=== PATIENT | male | born 1955 | race Hispanic/Latino ===

== ENCOUNTER 2021-06-09 22:36 | Inpatient (IN) | payer MEDICARE ==
[~2021-06-09] VITALS: Ht 172.7 cm; Wt 86.9 kg
[2021-06-09 22:55] VITALS: BP 139/70
[2021-06-09] MEDS ORDERED: TYLENOL PO PRN (23:30)
[2021-06-09] MEDS ORDERED: LOVENOX SQ SCH (23:30)
[2021-06-09] MEDS ORDERED: ZOFRAN IV PRN (23:30)
[2021-06-10] MEDS ORDERED: LACTATED RINGERS 1,000 ML IV SCH
[2021-06-10] MEDS ORDERED: VANCOMYCIN HCL 1 GM ONE (00:28)
[2021-06-10] MEDS: NORCO 5MG PO PRN ×3 (00:44→23:18)
--- NOTE | 2021-06-10 01:19 | PRM.CONS ---
Consultation Reason for Consult: Reason for Consultation: transfer from [facility] ER for failed outpt tx of infected left knee History of Present Illness Current and Past HX: (1) Abscess of bursa, left knee Status: Acute ICD Code: M71.062 - Abscess of bursa, left knee SNOMED: 541577317 Assessment & Plan: Failed outpt treatment w/ Bactrim DS. Xray and US of left knee done at that facility, no bone involvement per check- out (no records available to review at this time). S/p I&D at [facility] ER in [place], wound cx sent to [facility]. Received vancomycin and clindamycin at that facility prior to transfer. -Dr. Castro, ortho, consulted -stat CBC ordered -continue IV vancomycin (2) T2DM (type 2 diabetes mellitus) Status: Chronic ICD Code: E11.9 - Type 2 diabetes mellitus without complications SNOMED: 19500817 Assessment & Plan: Glucose elevated when checked by EMS during transport, unknown what the glucose reading was at that time. -stat BMP -glucose checks ACHS -SSI History of Patient Comments 65yoM w/ hx of T2DM presented to [facility] ER w/ worsening left knee pain, redness, warmth and swelling. Stated the pain and redness/warmth/swelling started approx 10 days ago. He was prescribed Bactrim DS but the symptoms got worse, to the point he went to the [facility] ER in [place] for further evaluation. Left knee US and Xray done at that facility (report unavailable at time of admission) and he was told there was an abscess of the bursa of his left knee but no bone involvement. They did an I&D there and sent wound cx to [facility]. He received vancomycin and clindamycin prior to transfer to [facility]. Patient was hyperglycemic in ambulance during transport (glucose measurement unknown at time of admission). Labs ordered. Vancomycin ordered. Dr. Castro, orthopedics, consulted. Admitted as inpatient for abscess of left knee bursa after failing outpatient antibiotics, and management of chronic conditions. . Vitals & Lab Vital Signs Date Time Temp Pulse Resp B/P (MAP) Pulse Ox O2 Delivery O2 Flow Rate FiO2 06/09/21 22:55 98.7 76 17 139/70 (93) 92 Room Air KANDIS SEQUEIRA MD Jun 10, 2021 01:19
[2021-06-10 01:29] LABS: CARBON DIOXIDE 22.9 mmol/L (20.0-32)
[2021-06-10] MEDS: VANCOMYCIN HCL 1 GM in NS 250ML 250 ML IV SCH ×3 (01:35→22:04)
[2021-06-10 01:43] LABS: BASOPHIL % 0.3 % (0.0-0.2); EOSINOPHIL # 0.2 10^3/uL (0.0-0.2); EOSINOPHIL % 2.7 % (0.0-5.0); LYMPHOCYTES # 0.47 10^3/uL1 (1.0-4.8); LYMPHOCYTES % 6.8 % (24.0-44.0); MEAN CORP HGB 25.2 pg (26-34); MONOCYTES # 0.5 10^3/uL (0.3-0.8); MONOCYTES % 7.1 % (5.0-12.0); NEUTROPHIL # 5.7 10^3/uL (1.8-7.7); NEUTROPHILS % 81.4 % (41.0-85.0); PLATELET COUNT 166 10^3/uL (150-400); RED CELL DISTRIBUTION WIDTH 15.7 % (11.5-14.5)
[2021-06-10] MEDS: MORPHINE SULFATE IV PRN ×2 (02:18→20:47)
[2021-06-10] MEDS: NS 1000ML 1,000 ML IV SCH ×2 (03:00→16:20)
[2021-06-10 04:25] VITALS: BP 132/74
[2021-06-10] MEDS: HUMALOG SQ SCH ×4 (08:00→21:00)
[2021-06-10 08:46] VITALS: BP 127/67
--- NOTE | 2021-06-10 09:29 | CNH ---
DATE OF CONSULTATION: 06/10/2021 DICTATOR NAME: Isaac Castro MD CHIEF COMPLAINT: Painful left knee. 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 The patient lives in [place]. The patient began having swelling and pain about the anterior portion of his left knee due to 3 days ago. He was seen in one of the freestanding ER and initially placed on Bactrim-DS. Symptoms got worse and the patient was seen back in the freestanding ER yesterday where the prepatellar bursa was aspirated. The patient was not responding to p.o. antibiotics and he was transferred to [place] because there were no beds available in [place]. The patient does have type 2 diabetes. He denies any fever or chills. He states that the swelling in his lower leg is better since he has been on IV vancomycin. Exam today shows that he has some diffuse swelling about the prepatellar bursa. There is no drainage. His knee joint itself was not swollen. He has good flexion and extension of the knee. The patient's admitting white count is 7. Otherwise, lab work looked okay except for his sodium was low at 131. ASSESSMENT: Infected left prepatellar bursa. PLAN: The patient will be started on IV vancomycin and warm compresses. We will add piperacillin and follow the patient clinically. Isaac Castro MD DR: JAG/KIRK TID: [id number] RECEIPT: [id number]
[2021-06-10 11:52] VITALS: BP 132/61
--- NOTE | 2021-06-10 13:48 | NUR ---
DISCHARGE PLAN CM VISITED WITH PATIENT REGARDING D/C PLAN. PATIENT LIVES AT HOME WITH HIS SPOUSE AND IS VERY IND OF ADL. 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 PATIENT HAS REQUIRED A CANE TO WALK SINCE HE HAS BEEN DOWN IN HIS KNEE. HE DOES NOT USE ANY OTHER DME AT HOME. HIS PCP IS DR FISHER. CM EDUCATED ON POSSIBILITY OF HIM NEEDING IV THERAPY AND WOUND CARE AFTER DISCHARGE. PATIENT VERBALIZED UNDERSTANDING. CM WILL CONTINUE TO MONITOR DISCHARGE NEEDS OF PATIENT.
--- NOTE | 2021-06-10 15:35 | PCM.HP ---
HISTORY & PHYSICAL HISTORY & PHYSICAL DATE OF ADMISSION: CHIEF COMPLAINT:Left knee swelling and pain History of Present Illness Current and Past HX: (1) Abscess of bursa, left knee Status: Acute ICD Code: M71.062 - Abscess of bursa, left knee SNOMED: 261994804 Assessment & Plan: Failed outpt treatment w/ Bactrim DS. Xray and US of left knee done at that facility, no bone involvement per check- out (no records available to review at this time). S/p I&D at [facility] ER in [place], wound cx sent to [facility]. Received vancomycin and clindamycin at that facility prior to transfer. -Dr. Castro, ortho, consulted -stat CBC ordered -continue IV vancomycin (2) T2DM (type 2 diabetes mellitus) Status: Chronic ICD Code: E11.9 - Type 2 diabetes mellitus without complications SNOMED: [id number] Assessment & Plan: Glucose elevated when checked by EMS during transport, unknown what the glucose reading was at that time. -stat BMP -glucose checks ACHS -SSI History of Patient Comments 65yoM w/ hx of T2DM presented to [facility] ER w/ worsening left knee pain, redness, warmth and swelling. Stated the pain and redness/warmth/swelling started approx 10 days ago. He was prescribed Bactrim DS but the symptoms got worse, to the point he went to the [facility] ER in [place] for further evaluation. Left knee US and Xray done at that facility (report unavailable at t bear of admission) and he was told there was an abscess of the bursa of his left knee but no bone involvement. They did an I&D there and sent wound cx to [facility]. He received vancomycin and clindamycin prior to transfer to [facility]. Patient was hyperglycemic in ambulance during transport (glucose measurement unknown at time of admission). Labs ordered. Vancomycin ordered. Dr. Castro, orthopedics, consulted. Admitted as inpatient for abscess of left knee bursa after failing outpatient antibiotics, and management of chronic conditions. . ALLERGIES: No known allergies PAST MEDICAL HISTORY: Diabetes mellitus SOCIAL HISTORY: No history of smoking or alcohol drinking or drug abuse reported FAMILY HISTORY: Reviewed noncontributory REVIEW OF SYSTEMS: Review of 14 systems negative except was mentioned history present illness VITAL SIGNS: PHYSICAL EXAMINATION: Blood pressure 130/80, heart rate 80, respiratory rate 14, temperature 98 Head and neck normocephalic atraumatic neck supple Chest fair bilateral air entry Heart S1-S2 regular Abdomen soft nontender bowel sounds present Neuro awake alert oriented no focal deficit Psych normal mood Extremities swollen tender erythematous knee DIONE CHURCH MD Jun 10, 2021 15:35
[2021-06-10 16:08] VITALS: BP 126/68
[2021-06-10] MEDS ORDERED: ZOSYN 3.375 GM 3.375 GM in NS 100ML 100 ML IV SCH (17:30)
[2021-06-10] MEDS ORDERED: NS 100ML 100 ML IV ONE (19:56)
[2021-06-10] MEDS ORDERED: NS 500ML 500 ML IV ONE (20:08)
[2021-06-10] MEDS: ZOSYN 3.375 GM 3.375 GM in NS 100ML 100 ML IV SCH (20:18)
[2021-06-10 20:20] VITALS: BP 121/71
[2021-06-11] VITALS (15 sets, daily range): BP systolic 113–158; BP diastolic 61–87
[2021-06-11] MEDS ORDERED: NS 100ML 100 ML IV ONE (03:51)
[2021-06-11] MEDS: ZOSYN 3.375 GM 3.375 GM in NS 100ML 100 ML IV SCH ×3 (04:00→19:53)
[2021-06-11 06:05] LABS: BASOPHIL % 0.5 % (0.0-0.2); EOSINOPHIL # 0.2 10^3/uL (0.0-0.2); EOSINOPHIL % 4.2 % (0.0-5.0); LYMPHOCYTES # 0.68 10^3/uL1 (1.0-4.8); MEAN CORP HGB 25.3 pg (26-34); MONOCYTES # 0.5 10^3/uL (0.3-0.8); MONOCYTES % 8.3 % (5.0-12.0); NEUTROPHIL # 4.2 10^3/uL (1.8-7.7); PLATELET COUNT 158 10^3/uL (150-400); RED CELL DISTRIBUTION WIDTH 15.5 % (11.5-14.5)
[2021-06-11 06:12] LABS: CARBON DIOXIDE 23.3 mmol/L (20.0-32)
--- NOTE | 2021-06-11 06:12 | NUR ---
Applied gauze and randy wrap over pts left leg, k-matic pad applied for warm moist
[2021-06-11] MEDS: NS 1000ML 1,000 ML IV SCH ×2 (06:50→19:53)
[2021-06-11] MEDS: HUMALOG SQ SCH ×4 (07:30→21:00)
--- NOTE | 2021-06-11 08:39 | PRM.PN ---
Subjective Subjective Date: Jun 11, 2021 Time: 08:38 Subjective Pt still has pain and swelling of left prepatella bursa Tender with Palpation Will proceed with I&D today VTE VTE Risk Total Score: 3 VTE Risk Score VTE Risk: Score 0-1 = Low Risk (Aggressive mobilization; early ambulation; no VTE prophylaxis required) Score 2: Moderate Risk (Intermittent/Pneumatic Compression Device OR Lovenox/Heparin/Coumadin) Score 3-4: High Risk (Intermittent/Pneumatic Compression Device AND Lovenox/Heparin/Coumadin) Score > or =5: Highest Risk (Intermittent/Pneumatic Compression Device AND Lovenox/Heparin/Coumadin) Review of Systems Allergies: Coded Allergies: No Known Allergies (Unverified , 06/10/21) Objective Vitals and I/O Vital Sign - Last 24 Hours 06/10/21 06/10/21 06/10/21 06/10/21 08:46 11:52 16:08 20:20 Temp 97.9 98.5 98.0 98.4 Pulse 69 83 85 81 Resp 18 18 17 18 B/P (MAP) 127/67 (87) 132/61 (84) 126/68 (87) 121/71 (88) Pulse Ox 97 96 96 94 O2 Delivery Room Air Room Air Room Air 06/11/21 06/11/21 06/11/21 00:00 01:48 04:00 Temp 98.5 97.5 Pulse 68 66 Resp 18 18 B/P (MAP) 123/71 (88) 122/73 (89) Pulse Ox 94 96 O2 Delivery Room Air Room Air Room Air Intake and Output 06/11/21 07:00 Intake Total 1550 ml Output Total 700 ml Balance 850 ml All Results(Lab/Rad) Laboratory Tests Test 06/10/21 10:46 06/10/21 15:45 06/10/21 20:04 06/11/21 04:59 Bedside Glucose 294 231 381 White Blood Count 5.7 10^3/uL Red Blood Count 4.07 10^6/uL Hemoglobin 10.3 g/dL Hematocrit 31.8 % Mean Corpuscular Volume 78.1 fL Mean Corpuscular Hemoglobin 25.3 pg Mean Corpuscular Hemoglobin Concent 32.4 g/dL Red Cell Distribution Width 15.5 % Platelet Count 158 10^3/uL Mean Platelet Volume 9.5 fL Neutrophils (%) (Auto) 75.0 % Lymphocytes (%) (Auto) 12.0 % Monocytes (%) (Auto) 8.3 % Neutrophils # (Auto) 4.2 10^3/uL Lymphocytes # (Auto) 0.68 10^3/uL1 Monocytes # (Auto) 0.5 10^3/uL Absolute Immature Granulocyte (auto 0.20 10^3 u/L Absolute Eosinophils (auto) 0.2 10^3/uL Immature Granulocytes % 3.50 % Eosinophils % 4.2 % Basophils % 0.5 % Basophils # 0.0 10^3/uL Sodium Level 135 mmol/L Potassium Level 4.6 mmol/L Chloride Level 103.0 mmol/L Carbon Dioxide Level 23.3 mmol/L Glucose Level 209 mg/dL Blood Urea Nitrogen 14 mg/dL Creatinine 0.92 mg/dL Calcium Level 8.7 mg/dL Anion Gap 13.3 Estimated GFR () 99.9 Est GFR (CKD-EPI)(Non-Afr Nigerien) 82.6 BUN/Creatinine Ratio 15.0 Test 06/11/21 07:08 Bedside Glucose 214 Current Medications Medications (Trade) Dose Ordered Sig/Kerry Route PRN Reason Start Time Stop Time Status Last Admin Dose Admin Acetaminophen (Tylenol) 650 mg Q4H PRN PO PAIN 1 - 3 06/09/21 23:30 07/09/21 23:29 Morphine Sulfate (Morphine Sulfate) 2 mg Q4H PRN IV PAIN 7 - 10 06/09/21 23:45 07/09/21 23:44 06/10/21 20:47 Insulin Human Lispro (Humalog) 0-140 0 Units 141-200... ACHS SQ 06/10/21 07:30 07/10/21 07:29 06/10/21 21:00 Ondansetron HCl (Zofran) 4 mg Q6H PRN IV n/v 06/09/21 23:30 07/09/21 23:29 Vancomycin HCl 1 gm/Sodium Chloride 250 ml @ 175 mls/hr Q12HR IV 06/09/21 23:30 07/09/21 23:29 06/10/21 22:04 Acetaminophen/ Hydrocodone Bitart (Fanrock 5mg) 1 ea Q6HR PRN PO PAIN 4 - 6 06/09/21 23:30 07/09/21 23:29 06/10/21 23:18 Enoxaparin Sodium (Lovenox) 40 mg Q24HRS SQ 06/09/21 23:30 06/10/21 17:26 DC 06/10/21 00:44 Vancomycin HCl 1 ml @ ud STK-MED ONCE .ROUTE 06/10/21 00:28 06/10/21 00:28 DC Sodium Chloride 1,000 ml @ 75 mls/hr [id number] IV 06/10/21 03:00 07/10/21 02:59 06/10/21 03:00 Piperacillin Sod/ Tazobactam Sod 3.375 gm/Sodium Chloride 100 ml @ 100 mls/hr Q6H IV 06/10/21 17:30 06/10/21 17:37 DC Piperacillin Sod/ Tazobactam Sod 3.375 gm/Sodium Chloride 100 ml @ 100 mls/hr Q8H IV 06/10/21 19:30 07/10/21 19:29 06/11/21 04:00 Sodium Chloride 100 ml @ ud STK-MED ONCE IV 06/10/21 19:56 06/10/21 19:56 DC Sodium Chloride 500 ml @ ud STK-MED ONCE IV 06/10/21 20:08 06/10/21 20:09 DC Sodium Chloride 100 ml @ ud STK-MED ONCE IV 06/11/21 03:51 06/11/21 03:52 DC Course Sepsis Screening Results: Posi: NEGATIVE Sepsis Qualifier/Stage: NO DEFINITE RISK Vitals & review Data Vital Sign - Last 24 Hours 06/10/21 06/10/21 06/10/21 06/10/21 08:46 11:52 16:08 20:20 Temp 97.9 98.5 98.0 98.4 Pulse 69 83 85 81 Resp 18 18 17 18 B/P (MAP) 127/67 (87) 132/61 (84) 126/68 (87) 121/71 (88) Pulse Ox 97 96 96 94 O2 Delivery Room Air Room Air Room Air 06/11/21 06/11/21 06/11/21 00:00 01:48 04:00 Temp 98.5 97.5 Pulse 68 66 Resp 18 18 B/P (MAP) 123/71 (88) 122/73 (89) Pulse Ox 94 96 O2 Delivery Room Air Room Air Room Air Intake and Output 06/11/21 07:00 Intake Total 1550 ml Output Total 700 ml Balance 850 ml Laboratory Tests Test 06/10/21 10:46 06/10/21 15:45 06/10/21 20:04 06/11/21 04:59 Bedside Glucose 294 231 381 White Blood Count 5.7 10^3/uL Red Blood Count 4.07 10^6/uL Hemoglobin 10.3 g/dL Hematocrit 31.8 % Mean Corpuscular Volume 78.1 fL Mean Corpuscular Hemoglobin 25.3 pg Mean Corpuscular Hemoglobin Concent 32.4 g/dL Red Cell Distribution Width 15.5 % Platelet Count 158 10^3/uL Mean Platelet Volume 9.5 fL Neutrophils (%) (Auto) 75.0 % Lymphocytes (%) (Auto) 12.0 % Monocytes (%) (Auto) 8.3 % Neutrophils # (Auto) 4.2 10^3/uL Lymphocytes # (Auto) 0.68 10^3/uL1 Monocytes # (Auto) 0.5 10^3/uL Absolute Immature Granulocyte (auto 0.20 10^3 u/L Absolute Eosinophils (auto) 0.2 10^3/uL Immature Granulocytes % 3.50 % Eosinophils % 4.2 % Basophils % 0.5 % Basophils # 0.0 10^3/uL Sodium Level 135 mmol/L Potassium Level 4.6 mmol/L Chloride Level 103.0 mmol/L Carbon Dioxide Level 23.3 mmol/L Glucose Level 209 mg/dL Blood Urea Nitrogen 14 mg/dL Creatinine 0.92 mg/dL Calcium Level 8.7 mg/dL Anion Gap 13.3 Estimated GFR () 99.9 Est GFR (CKD-EPI)(Non-Afr Nigerien) 82.6 BUN/Creatinine Ratio 15.0 Test 06/11/21 07:08 Bedside Glucose 214 Current Medications Medications (Trade) Dose Ordered Sig/Kerry PRN Reason Start Time Stop Time Status Last Admin Acetaminophen (Tylenol) 650 mg Q4H PRN PAIN 1 - 3 06/09/21 23:30 07/09/21 23:29 Acetaminophen/ Hydrocodone Bitart (Fan[place] 5mg) 1 ea Q6HR PRN PAIN 4 - 6 06/09/21 23:30 07/09/21 23:29 06/10/21 23:18 Insulin Human Lispro (Humalog) 0-140 0 Units 141-200... ACHS 06/10/21 07:30 07/10/21 07:29 06/10/21 21:00 Morphine Sulfate (Morphine Sulfate) 2 mg Q4H PRN PAIN 7 - 10 06/09/21 23:45 07/09/21 23:44 06/10/21 20:47 Ondansetron HCl (Zofran) 4 mg Q6H PRN n/v 06/09/21 23:30 07/09/21 23:29 Piperacillin Sod/ Tazobactam Sod 3.375 gm/Sodium Chloride 100 ml @ 100 mls/hr Q8H 06/10/21 19:30 07/10/21 19:29 06/11/21 04:00 Sodium Chloride 1,000 ml @ 75 mls/hr [id number] 06/10/21 03:00 07/10/21 02:59 06/10/21 03:00 Vancomycin HCl 1 gm/Sodium Chloride 250 ml @ 175 mls/hr Q12HR 06/09/21 23:30 07/09/21 23:29 06/10/21 22:04 LEVEL 1 SEPSIS INFECTION CRITE: ABX Therapy, Cellulitis LEVEL 2-SIRS (LIST ALL THAT AP: None/Not assessed Cardiovascular Evidence: Not Assessed or None Hematologic Evidence: None/Not assessed Hepatic Evidence: None/Not assessed Metabolic Evidence: None/Not assessed Neurological Evidence: None/Not assessed Respiratory Evidence: None/Not assessed Renal Evidence: None/Not assessed O2 Sat by Pulse Oximetry: 96 MILEY DOMINGUEZ MD Jun 11, 2021 08:39
[2021-06-11] MEDS: VANCOMYCIN HCL 1 GM in NS 250ML 250 ML IV SCH ×2 (09:00→23:00)
[2021-06-11] MEDS ORDERED: SODIUM CHLORIDE IRR BOTTLE IR ONE (10:21)
[2021-06-11] MEDS ORDERED: NS 1000ML 1,000 ML ONE (10:28)
[2021-06-11] MEDS ORDERED: ZOFRAN ONE (10:29)
[2021-06-11] MEDS ORDERED: VASOPRESSIN ONE (10:29)
[2021-06-11] MEDS ORDERED: TORADOL ONE (10:29)
[2021-06-11] MEDS ORDERED: BRIDION IV ONE (10:29)
[2021-06-11] MEDS ORDERED: EPHEDRINE SULFATE ONE (10:29)
[2021-06-11] MEDS ORDERED: XYLOCAINE 2% 5ML VIAL ONE (10:29)
[2021-06-11] MEDS ORDERED: ROCURONIUM BROMIDE IV ONE (10:29)
[2021-06-11] MEDS ORDERED: DIPRIVAN IV ONE (10:30)
[2021-06-11] MEDS ORDERED: DILAUDID ONE ×2 (10:30→12:40)
[2021-06-11] MEDS ORDERED: DILAUDID IV PRN (12:00)
--- NOTE | 2021-06-11 12:25 | OPH ---
DATE OF SURGERY: 06/11/2021 DICTATOR NAME: Isaac Castro MD PREOPERATIVE DIAGNOSIS: Infected left prepatellar bursa. POSTOPERATIVE DIAGNOSIS: Infected left prepatellar bursa. OPERATIVE PROCEDURE: Incision and debridement of skin and bursal tissue as well as subcutaneous tissue of the left prepatellar bursa using a #10 knife blade as well as the Versajet system. SURGEON: Isaac Castro MD. ANESTHESIA: General endotracheal. TOURNIQUET TIME: 12 minutes at 300 mmHg. DRAINS: None. BLOOD LOSS: 100 mL DESCRIPTION OF INDICATIONS: The patient is a 65-year-old male with about 5-6 day history of swelling about the left prepatellar bursa. He was seen in the minor emergency clinic in [place] on 06/09/2021 when he had the bursa aspirated and then was transferred to [place] because there were no hospital beds available in [place]. The patient had been on vancomycin and piperacillin, but has continued to have swelling and pain about the left prepatellar bursa. He was taken to the operating room today for I and D. DESCRIPTION OF PROCEDURE: The patient was placed on the operating table in the supine position. General endotracheal anesthetic was induced without difficulty. A well-padded tourniquet was placed around the left thigh. The left lower extremity was then sterilely prepped and draped. The patient had the leg elevated for 60 seconds and the tourniquet was inflated to 300. Straight anterior incision was made about the right prepatellar area. Incision was taken through the skin and the subcutaneous tissue down to the prepatellar bursa. There was a copious amount of purulent material encountered. Gram stain as well as aerobic and anaerobic cultures were taken. The patient had the subcutaneous tissue and the bursal tissue resected with a #10 knife blade as well as the Versajet system. Once all the necrotic and infected debris was removed, then the tourniquet was released. Any active bleeding was controlled with the cautery. The wound was packed open with Betadine moist gauze and dressed with 4 x 4's, ABD pads, cast padding and an Dany wrap. The patient was sent to recovery in stable condition. Isaac Castro MD DR: JAG/KIRK TID: [id number] RECEIPT: [id number]
--- NOTE | 2021-06-11 13:03 | NUR ---
BACK TO ROOM FROM PACU AND RECEIVED REPORT. SEE SPECIAL VS RECORD.
--- NOTE | 2021-06-11 15:40 | PRM.PN ---
Subjective Subjective Date: Jun 11, 2021 Time: 07:00 Subjective No new complaints except for knee pain.Patient is scheduled for incision and drainage today. Review of Systems Constitutional: Chills, Weakness Musculoskeletal: leg pain Allergies: Coded Allergies: No Known Allergies (Unverified , 06/10/21) Objective Vitals and I/O Vital Sign - Last 24 Hours 06/10/21 06/10/21 06/11/21 06/11/21 16:08 20:20 00:00 01:48 Temp 98.0 98.4 98.5 Pulse 85 81 68 Resp 17 18 18 B/P (MAP) 126/68 (87) 121/71 (88) 123/71 (88) Pulse Ox 96 94 94 O2 Delivery Room Air Room Air Room Air Room Air 06/11/21 06/11/21 04:00 13:35 Temp 97.5 97.5 Pulse 66 96 Resp 18 16 B/P (MAP) 122/73 (89) 146/86 (106) Pulse Ox 96 94 O2 Delivery Room Air Intake and Output0 06/11/21 07:00 Intake Total 1550 ml Output Total 700 ml Balance 850 ml General: Alert, Oriented X3 Neck: Supple, No JVD Lungs: Clear to auscultation, Normal air movement Heart: Regular rate, Normal S1 Abdomen: Normal bowel sounds, Soft Extremities: Other (Ms. Lin, erythematous) Skin: No significant lesion Neuro: Normal speech, Normal tone Psych/Mental Status: Mental status NL, Mood NL All Results(Lab/Rad) Laboratory Tests Test 06/10/21 10:46 06/10/21 15:45 06/10/21 20:04 06/11/21 04:59 Bedside Glucose 294 231 381 White Blood Count 5.7 10^3/uL Red Blood Count 4.07 10^6/uL Hemoglobin 10.3 g/dL Hematocrit 31.8 % Mean Corpuscular Volume 78.1 fL Mean Corpuscular Hemoglobin 25.3 pg Mean Corpuscular Hemoglobin Concent 32.4 g/dL Red Cell Distribution Width 15.5 % Platelet Count 158 10^3/uL Mean Platelet Volume 9.5 fL Neutrophils (%) (Auto) 75.0 % Lymphocytes (%) (Auto) 12.0 % Monocytes (%) (Auto) 8.3 % Neutrophils # (Auto) 4.2 10^3/uL Lymphocytes # (Auto) 0.68 10^3/uL1 Monocytes # (Auto) 0.5 10^3/uL Absolute Immature Granulocyte (auto 0.20 10^3 u/L Absolute Eosinophils (auto) 0.2 10^3/uL Immature Granulocytes % 3.50 % Eosinophils % 4.2 % Basophils % 0.5 % Basophils # 0.0 10^3/uL Sodium Level 135 mmol/L Potassium Level 4.6 mmol/L Chloride Level 103.0 mmol/L Carbon Dioxide Level 23.3 mmol/L Glucose Level 209 mg/dL Blood Urea Nitrogen 14 mg/dL Creatinine 0.92 mg/dL Calcium Level 8.7 mg/dL Anion Gap 13.3 Estimated GFR () 99.9 Est GFR (CKD-EPI)(Non-Afr Dutch) 82.6 BUN/Creatinine Ratio 15.0 Test 06/11/21 07:08 Bedside Glucose 214 Current Medications Medications (Trade) Dose Ordered Sig/Kerry Route PRN Reason Start Time Stop Time Status Last Admin Dose Admin Acetaminophen (Tylenol) 650 mg Q4H PRN PO PAIN 1 - 3 06/09/21 23:30 07/09/21 23:29 Morphine Sulfate (Morphine Sulfate) 2 mg Q4H PRN IV PAIN 7 - 10 06/09/21 23:45 07/09/21 23:44 06/10/21 20:47 Insulin Human Lispro (Humalog) 0-140 0 Units 141-200... ACHS SQ 06/10/21 07:30 07/10/21 07:29 06/10/21 21:00 Ondansetron HCl (Zofran) 4 mg Q6H PRN IV n/v 06/09/21 23:30 07/09/21 23:29 Vancomycin HCl 1 gm/Sodium Chloride 250 ml @ 175 mls/hr Q12HR IV 06/09/21 23:30 07/09/21 23:29 06/10/21 22:04 Acetaminophen/ Hydrocodone Bitart (Cantril 5mg) 1 ea Q6HR PRN PO PAIN 4 - 6 06/09/21 23:30 07/09/21 23:29 06/10/21 23:18 Enoxaparin Sodium (Lovenox) 40 mg Q24HRS SQ 06/09/21 23:30 06/10/21 17:26 DC 06/10/21 00:44 Vancomycin HCl 1 ml @ ud STK-MED ONCE .ROUTE 06/10/21 00:28 06/10/21 00:28 DC Sodium Chloride 1,000 ml @ 75 mls/hr [id number] IV 06/10/21 03:00 07/10/21 02:59 06/10/21 03:00 Piperacillin Sod/ Tazobactam Sod 3.375 gm/Sodium Chloride 100 ml @ 100 mls/hr Q6H IV 06/10/21 17:30 06/10/21 17:37 DC Piperacillin Sod/ Tazobactam Sod 3.375 gm/Sodium Chloride 100 ml @ 100 mls/hr Q8H IV 06/10/21 19:30 07/10/21 19:29 06/11/21 04:00 Sodium Chloride 100 ml @ ud STK-MED ONCE IV 06/10/21 19:56 06/10/21 19:56 DC Sodium Chloride 500 ml @ ud STK-MED ONCE IV 06/10/21 20:08 06/10/21 20:09 DC Sodium Chloride 100 ml @ ud STK-MED ONCE IV 06/11/21 03:51 06/11/21 03:52 DC Assessment/Plan Assessment/Plan Assessment/Plan Plan Continue IV antibiotics, vancomycin and Zosyn Appreciate orthopedic input for incision and drainage today Sliding scale with insulin coverage DVT prophylaxis as appropriate Problems: (1) Abscess of bursa, left knee Status: Acute ICD Code: M71.062 - Abscess of bursa, left knee SNOMED: 239925384 (2) T2DM (type 2 diabetes mellitus) Status: Chronic ICD Code: E11.9 - Type 2 diabetes mellitus without complications SNOMED: 18120024 DIONE CHURCH MD Jun 11, 2021 15:40
--- NOTE | 2021-06-11 18:51 | NUR ---
REPORT REPORT TO ONCOMING SHIFT
[2021-06-11] MEDS: MORPHINE SULFATE IV PRN (19:46)
[2021-06-11] MEDS: NORCO 5MG PO PRN (23:03)
[2021-06-12] MEDS: MORPHINE SULFATE IV PRN ×2 (02:29→08:36)
[2021-06-12] MEDS: ZOSYN 3.375 GM 3.375 GM in NS 100ML 100 ML IV SCH (03:30)
[2021-06-12 04:00] VITALS: BP 134/69
[2021-06-12 04:49] LABS: BASOPHIL % 0.3 % (0.0-0.2); EOSINOPHIL # 0.2 10^3/uL (0.0-0.2); EOSINOPHIL % 2.4 % (0.0-5.0); LYMPHOCYTES # 0.73 10^3/uL1 (1.0-4.8); LYMPHOCYTES % 10.2 % (24.0-44.0); MEAN CORP HGB 25.4 pg (26-34); MONOCYTES # 0.5 10^3/uL (0.3-0.8); MONOCYTES % 6.8 % (5.0-12.0); NEUTROPHIL # 5.6 10^3/uL (1.8-7.7); NEUTROPHILS % 78.2 % (41.0-85.0); PLATELET COUNT 150 10^3/uL (150-400); RED CELL DISTRIBUTION WIDTH 15.7 % (11.5-14.5)
[2021-06-12 05:10] LABS: CARBON DIOXIDE 24.1 mmol/L (20.0-32)
[2021-06-12] MEDS: NORCO 5MG PO PRN (06:31)
[2021-06-12 07:34] VITALS: BP 133/77
[2021-06-12] MEDS: HUMALOG SQ SCH ×5 (08:00→21:00)
[2021-06-12] MEDS: NS 1000ML 1,000 ML IV SCH ×2 (08:36→21:40)
[2021-06-12] MEDS ORDERED: DILAUDID IV ONE (09:30)
[2021-06-12] MEDS: VANCOMYCIN HCL 1 GM in NS 250ML 250 ML IV SCH ×2 (09:34→23:00)
--- NOTE | 2021-06-12 12:22 | PRM.PN ---
Subjective Subjective Date: Jun 12, 2021 Time: 12:19 Subjective Pt complaining of pain in left knee Afebrile VSS C&S from BSA = Staph aureus seneitive to Vanco Will adjust pain meds Plan repeat I&D in am with wound closure if wounds are clean VTE VTE Risk Total Score: 3 VTE Risk Score VTE Risk: Score 0-1 = Low Risk (Aggressive mobilization; early ambulation; no VTE prophylaxis required) Score 2: Moderate Risk (Intermittent/Pneumatic Compression Device OR Lovenox/Heparin/Coumadin) Score 3-4: High Risk (Intermittent/Pneumatic Compression Device AND Lovenox/Heparin/Coumadin) Score > or =5: Highest Risk (Intermittent/Pneumatic Compression Device AND Lovenox/Heparin/Coumadin) Review of Systems Constitutional: Chills, Weakness Musculoskeletal: leg pain Allergies: Coded Allergies: No Known Allergies (Unverified , 06/10/21) Objective Vitals and I/O Vital Sign - Last 24 Hours 06/11/21 06/11/21 06/11/21 06/11/21 12:20 12:25 12:30 12:35 Temp 98.0 Pulse 86 90 85 87 Resp 15 15 15 15 B/P (MAP) 146/79 (101) 143/82 (102) 155/80 (105) 155/87 (109) Pulse Ox 97 92 94 96 O2 Delivery Nasal Canula Nasal Canula Nasal Canula Nasal Canula O2 Flow Rate 3 1.5 1.5 1.5 06/11/21 06/11/21 06/11/21 06/11/21 12:40 12:45 12:50 12:55 Temp 97.6 Pulse 85 85 87 87 Resp 16 16 16 16 B/P (MAP) 144/78 (100) 153/82 (105) 158/78 (104) 149/87 (107) Pulse Ox 95 97 96 96 O2 Delivery Nasal [place] Nasal Canula Nasal Canula Nasal Canula O2 Flow Rate 1.5 1.5 1.5 1.5 06/11/21 06/11/21 06/11/21 06/11/21 13:03 13:35 15:50 20:17 Temp 97.5 97.8 98.5 Pulse 96 92 80 Resp 16 17 16 B/P (MAP) 146/86 (106) 129/85 (100) 127/69 (88) Pulse Ox 94 95 94 O2 Delivery Room Air O2 Flow Rate 1.5 06/11/21 06/12/21 06/12/21 06/12/21 22:39 04:00 07:34 10:53 Temp 98.2 98.8 Pulse 73 75 Resp 20 18 B/P (MAP) 134/69 (90) 133/77 (95) Pulse Ox 94 95 O2 Delivery Room Air Room Air Room Air Intake and Output 06/12/21 07:00 Intake Total 5810 ml Output Total 680 ml Balance 5130 ml General: Alert, Oriented X3 Neck: Supple, No JVD Lungs: Clear to auscultation, Normal air movement Heart: Regular rate, Normal S1 Abdomen: Normal bowel sounds, Soft Extremities: Other (Ms. Lin, erythematous) Skin: No significant lesion Neuro: Normal speech, Normal tone Psych/Mental Status: Mental status NL, Mood NL All Results(Lab/Rad) Laboratory Tests Test 06/10/21 10:46 06/10/21 15:45 06/10/21 20:04 06/11/21 04:59 Bedside Glucose 294 231 381 White Blood Count 5.7 10^3/uL Red Blood Count 4.07 10^6/uL Hemoglobin 10.3 g/dL Hematocrit 31.8 % Mean Corpuscular Volume 78.1 fL Mean Corpuscular Hemoglobin 25.3 pg Mean Corpuscular Hemoglobin Concent 32.4 g/dL Red Cell Distribution Width 15.5 % Platelet Count 158 10^3/uL Mean Platelet Volume 9.5 fL Neutrophils (%) (Auto) 75.0 % Lymphocytes (%) (Auto) 12.0 % Monocytes (%) (Auto) 8.3 % Neutrophils # (Auto) 4.2 10^3/uL Lymphocytes # (Auto) 0.68 10^3/uL1 Monocytes # (Auto) 0.5 10^3/uL Absolute Immature Granulocyte (auto 0.20 10^3 u/L Absolute Eosinophils (auto) 0.2 10^3/uL Immature Granulocytes % 3.50 % Eosinophils % 4.2 % Basophils % 0.5 % Basophils # 0.0 10^3/uL Sodium Level 135 mmol/L Potassium Level 4.6 mmol/L Chloride Level 103.0 mmol/L Carbon Dioxide Level 23.3 mmol/L Glucose Level 209 mg/dL Blood Urea Nitrogen 14 mg/dL Creatinine 0.92 mg/dL Calcium Level 8.7 mg/dL Anion Gap 13.3 Estimated GFR () 99.9 Est GFR (CKD-EPI)(Non-Afr [place]ian) 82.6 BUN/Creatinine Ratio 15.0 Test 06/11/21 07:08 Bedside Glucose 214 Current Medications Medications (Trade) Dose Ordered Sig/Kerry Route PRN Reason Start Time Stop Time Status Last Admin Dose Admin Acetaminophen (Tylenol) 650 mg Q4H PRN PO PAIN 1 - 3 06/09/21 23:30 07/09/21 23:29 Morphine Sulfate (Morphine Sulfate) 2 mg Q4H PRN IV PAIN 7 - 10 06/09/21 23:45 07/09/21 23:44 06/10/21 20:47 Insulin Human Lispro (Humalog) 0-140 0 Units 141-200... ACHS SQ 06/10/21 07:30 07/10/21 07:29 06/10/21 21:00 Ondansetron HCl (Zofran) 4 mg Q6H PRN IV n/v 06/09/21 23:30 07/09/21 23:29 Vancomycin HCl 1 gm/Sodium Chloride 250 ml @ 175 mls/hr Q12HR IV 06/09/21 23:30 07/09/21 23:29 06/10/21 22:04 Acetaminophen/ Hydrocodone Bitart ([place] 5mg) 1 ea Q6HR PRN PO PAIN 4 - 6 06/09/21 23:30 07/09/21 23:29 06/10/21 23:18 Enoxaparin Sodium (Lovenox) 40 mg Q24HRS SQ 06/09/21 23:30 06/10/21 17:26 DC 06/10/21 00:44 Vancomycin HCl 1 ml @ ud STK-MED ONCE .ROUTE 06/10/21 00:28 06/10/21 00:28 DC Sodium Chloride 1,000 ml @ 75 mls/hr [id number] IV 06/10/21 03:00 07/10/21 02:59 06/10/21 03:00 Piperacillin Sod/ Tazobactam Sod 3.375 gm/Sodium Chloride 100 ml @ 100 mls/hr Q6H IV 06/10/21 17:30 06/10/21 17:37 DC Piperacillin Sod/ Tazobactam Sod 3.375 gm/Sodium Chloride 100 ml @ 100 mls/hr Q8H IV 06/10/21 19:30 07/10/21 19:29 06/11/21 04:00 Sodium Chloride 100 ml @ ud STK-MED ONCE IV 06/10/21 19:56 06/10/21 19:56 DC Sodium Chloride 500 ml @ ud STK-MED ONCE IV 06/10/21 20:08 06/10/21 20:09 DC Sodium Chloride 100 ml @ STK-MED ONCE IV 06/11/21 03:51 06/11/21 03:52 DC Course Sepsis Screening Results: Posi: NEGATIVE Sepsis Qualifier/Stage: NO DEFINITE RISK Vitals & review Data Vital Sign - Last 24 Hours 06/10/21 06/10/21 06/10/21 06/10/21 08:46 11:52 16:08 20:20 Temp 97.9 98.5 98.0 98.4 Pulse 69 83 85 81 Resp 18 18 17 18 B/P (MAP) 127/67 (87) 132/61 (84) 126/68 (87) 121/71 (88) Pulse Ox 97 96 96 94 O2 Delivery Room Air Room Air Room Air 06/11/21 06/11/21 06/11/21 00:00 01:48 04:00 Temp 98.5 97.5 Pulse 68 66 Resp 18 18 B/P (MAP) 123/71 (88) 122/73 (89) Pulse Ox 94 96 O2 Delivery Room Air Room Air Room Air Intake and Output 06/11/21 07:00 Intake Total 1550 ml Output Total 700 ml Balance 850 ml Laboratory Tests Test 06/10/21 10:46 06/10/21 15:45 06/10/21 20:04 06/11/21 04:59 Bedside Glucose 294 231 381 White Blood Count 5.7 10^3/uL Red Blood Count 4.07 10^6/uL Hemoglobin 10.3 g/dL Hematocrit 31.8 % Mean Corpuscular Volume 78.1 fL Mean Corpuscular Hemoglobin 25.3 pg Mean Corpuscular Hemoglobin Concent 32.4 g/dL Red Cell Distribution Width 15.5 % Platelet Count 158 10^3/uL Mean Platelet Volume 9.5 fL Neutrophils (%) (Auto) 75.0 % Lymphocytes (%) (Auto) 12.0 % Monocytes (%) (Auto) 8.3 % Neutrophils # (Auto) 4.2 10^3/uL Lymphocytes # (Auto) 0.68 10^3/uL1 Monocytes # (Auto) 0.5 10^3/uL Absolute Immature Granulocyte (auto 0.20 10^3 u/L Absolute Eosinophils (auto) 0.2 10^3/uL Immature Granulocytes % 3.50 % Eosinophils % 4.2 % Basophils % 0.5 % Basophils # 0.0 10^3/uL Sodium Level 135 mmol/L Potassium Level 4.6 mmol/L Chloride Level 103.0 mmol/L Carbon Dioxide Level 23.3 mmol/L Glucose Level 209 mg/dL Blood Urea Nitrogen 14 mg/dL Creatinine 0.92 mg/dL Calcium Level 8.7 mg/dL Anion Gap 13.3 Estimated GFR () 99.9 Est GFR (CKD-EPI)(Non-Afr [place]ian) 82.6 BUN/Creatinine Ratio 15.0 Test 06/11/21 07:08 Bedside Glucose 214 Current Medications Medications (Trade) Dose Ordered Sig/Kerry PRN Reason Start Time Stop Time Status Last Admin Acetaminophen (Tylenol) 650 mg Q4H PRN PAIN 1 - 3 06/09/21 23:30 07/09/21 23:29 Acetaminophen/ Hydrocodone Bitart ([place] 5mg) 1 ea Q6HR PRN PAIN 4 - 6 06/09/21 23:30 07/09/21 23:29 06/10/21 23:18 Insulin Human Lispro (Humalog) 0-140 0 Units 141-200... ACHS 06/10/21 07:30 07/10/21 07:29 06/10/21 21:00 Morphine Sulfate (Morphine Sulfate) 2 mg Q4H PRN PAIN 7 - 10 06/09/21 23:45 07/09/21 23:44 06/10/21 20:47 Ondansetron HCl (Zofran) 4 mg Q6H PRN n/v 06/09/21 23:30 07/09/21 23:29 Piperacillin Sod/ Tazobactam Sod 3.375 gm/Sodium Chloride 100 ml @ 100 mls/hr Q8H 06/10/21 19:30 07/10/21 19:29 06/11/21 04:00 Sodium Chloride 1,000 ml @ 75 mls/hr [id number] 06/10/21 03:00 07/10/21 02:59 06/10/21 03:00 Vancomycin HCl 1 gm/Sodium Chloride 250 ml @ 175 mls/hr Q12HR 06/09/21 23:30 07/09/21 23:29 06/10/21 22:04 LEVEL 1 SEPSIS INFECTION CRITE: ABX Therapy, Cellulitis LEVEL 2-SIRS (LIST ALL THAT AP: None/Not assessed Cardiovascular Evidence: Not Assessed or None Hematologic Evidence: None/Not assessed Hepatic Evidence: None/Not assessed Metabolic Evidence: None/Not assessed Neurological Evidence: None/Not assessed Respiratory Evidence: None/Not assessed Renal Evidence: None/Not assessed O2 Sat by Pulse Oximetry: 95 Oxygen Flow Rate: 1.5 Assessment/Plan Assessment/Plan Assessment/Plan Plan Continue IV antibiotics, vancomycin and Zosyn Appreciate orthopedic input for incision and drainage today Sliding scale with insulin coverage DVT prophylaxis as appropriate MILEY DOMINGUEZ MD Jun 12, 2021 12:21
[2021-06-12] MEDS ORDERED: MORPHINE SULFATE IV PRN (12:30)
[2021-06-12] MEDS ORDERED: ULTRAM PO PRN (12:30)
[2021-06-12] MEDS ORDERED: CELEBREX ONE (12:44)
[2021-06-12] MEDS: CELEBREX PO SCH ×2 (12:47→20:55)
--- NOTE | 2021-06-12 14:54 | PRM.PN ---
Subjective Subjective Date: Jun 12, 2021 Time: 09:00 Subjective Patient complains of knee pain. He had incision and drainage yesterday. Awaiting culture results, will continue IV antibiotics Review of Systems Constitutional: Chills, Weakness Musculoskeletal: leg pain Allergies: Coded Allergies: No Known Allergies (Unverified , 06/10/21) Objective Vitals and I/O Vital Sign - Last 24 Hours 06/11/21 06/11/21 06/11/21 06/12/21 15:50 20:17 22:39 04:00 Temp 97.8 98.5 98.2 Pulse 92 80 73 Resp 17 16 20 B/P (MAP) 129/85 (100) 127/69 (88) 134/69 (90) Pulse Ox 95 94 94 O2 Delivery Room Air Room Air Room Air 06/12/21 06/12/21 07:34 10:53 Temp 98.8 Pulse 75 Resp 18 B/P (MAP) 133/77 (95) Pulse Ox 95 O2 Delivery Room Air Intake and Output 06/12/21 07:00 Intake Total 5810 ml Output Total 680 ml Balance 5130 ml General: Alert, Oriented X3 Neck: Supple, No JVD Lungs: Clear to auscultation, Normal air movement Heart: Regular rate, Normal S1 Abdomen: Normal bowel sounds, Soft Extremities: Other (Swollen, Less erythematous) Skin: No significant lesion Neuro: Normal speech, Normal tone Psych/Mental Status: Mental status NL, Mood NL All Results(Lab/Rad) Laboratory Tests Test 06/10/21 10:46 06/10/21 15:45 06/10/21 20:04 06/11/21 04:59 Bedside Glucose 294 231 381 White Blood Count 5.7 10^3/uL Red Blood Count 4.07 10^6/uL Hemoglobin 10.3 g/dL Hematocrit 31.8 % Mean Corpuscular Volume 78.1 fL Mean Corpuscular Hemoglobin 25.3 pg Mean Corpuscular Hemoglobin Concent 32.4 g/dL Red Cell Distribution Width 15.5 % Platelet Count 158 10^3/uL Mean Platelet Volume 9.5 fL Neutrophils (%) (Auto) 75.0 % Lymphocytes (%) (Auto) 12.0 % Monocytes (%) (Auto) 8.3 % Neutrophils # (Auto) 4.2 10^3/uL Lymphocytes # (Auto) 0.68 10^3/uL1 Monocytes # (Auto) 0.5 10^3/uL Absolute Immature Granulocyte (auto 0.20 10^3 u/L Absolute Eosinophils (auto) 0.2 10^3/uL Immature Granulocytes % 3.50 % Eosinophils % 4.2 % Basophils % 0.5 % Basophils # 0.0 10^3/uL Sodium Level 135 mmol/L Potassium Level 4.6 mmol/L Chloride Level 103.0 mmol/L Carbon Dioxide Level 23.3 mmol/L Glucose Level 209 mg/dL Blood Urea Nitrogen 14 mg/dL Creatinine 0.92 mg/dL Calcium Level 8.7 mg/dL Anion Gap 13.3 Estimated GFR () 99.9 Est GFR (CKD-EPI)(Non-Afr Swiss) 82.6 BUN/Creatinine Ratio 15.0 Test 06/11/21 07:08 Bedside Glucose 214 Current Medications Medications (Trade) Dose Ordered Sig/Kerry Route PRN Reason Start Time Stop Time Status Last Admin Dose Admin Acetaminophen (Tylenol) 650 mg Q4H PRN PO PAIN 1 - 3 06/09/21 23:30 07/09/21 23:29 Morphine Sulfate (Morphine Sulfate) 2 mg Q4H PRN IV PAIN 7 - 10 06/09/21 23:45 07/09/21 23:44 06/10/21 20:47 Insulin Human Lispro (Humalog) 0-140 0 Units 141-200... ACHS SQ 06/10/21 07:30 07/10/21 07:29 06/10/21 21:00 Ondansetron HCl (Zofran) 4 mg Q6H PRN IV n/v 06/09/21 23:30 07/09/21 23:29 Vancomycin HCl 1 gm/Sodium Chloride 250 ml @ 175 mls/hr Q12HR IV 06/09/21 23:30 07/09/21 23:29 06/10/21 22:04 Acetaminophen/ Hydrocodone Bitart ([place] 5mg) 1 ea Q6HR PRN PO PAIN 4 - 6 06/09/21 23:30 07/09/21 23:29 06/10/21 23:18 Enoxaparin Sodium (Lovenox) 40 mg Q24HRS SQ 06/09/21 23:30 06/10/21 17:26 DC 06/10/21 00:44 Vancomycin HCl 1 ml @ ud STK-MED ONCE .ROUTE 06/10/21 00:28 06/10/21 00:28 DC Sodium Chloride 1,000 ml @ 75 mls/hr [id number] IV 06/10/21 03:00 07/10/21 02:59 06/10/21 03:00 Piperacillin Sod/ Tazobactam Sod 3.375 gm/Sodium Chloride 100 ml @ 100 mls/hr Q6H IV 06/10/21 17:30 06/10/21 17:37 DC Piperacillin Sod/ Tazobactam Sod 3.375 gm/Sodium Chloride 100 ml @ 100 mls/hr Q8H IV 06/10/21 19:30 07/10/21 19:29 06/11/21 04:00 Sodium Chloride 100 ml @ ud STK-MED ONCE IV 06/10/21 19:56 06/10/21 19:56 DC Sodium Chloride 500 ml @ ud STK-MED ONCE IV 06/10/21 20:08 06/10/21 20:09 DC Sodium Chloride 100 ml @ ud STK-MED ONCE IV 06/11/21 03:51 06/11/21 03:52 DC Assessment/Plan Assessment/Plan Assessment/Plan Plan Continue IV antibiotics, vancomycin and Zosyn Appreciate orthopedic Health, awaiting culture and sensitivity Sliding scale with insulin coverage DVT prophylaxis as appropriate Problems: (1) Abscess of bursa, left knee Status: Acute ICD Code: M71.062 - Abscess of bursa, left knee SNOMED: 518443222 (2) T2DM (type 2 diabetes mellitus) Status: Chronic ICD Code: E11.9 - Type 2 diabetes mellitus without complications SNOMED: 13927518 DIONE CHURCH MD Jun 12, 2021 14:54
[2021-06-12 16:29] VITALS: BP 128/76
[2021-06-12] MEDS: TYLENOL PO SCH (18:14)
[2021-06-12 20:00] VITALS: BP 143/87
[2021-06-13] VITALS (16 sets, daily range): BP systolic 124–183; BP diastolic 70–97
[2021-06-13] MEDS: TYLENOL PO SCH ×5 (00:03→23:30)
[2021-06-13 05:19] LABS: BASOPHIL % 0.4 % (0.0-0.2); EOSINOPHIL # 0.2 10^3/uL (0.0-0.2); LYMPHOCYTES # 0.74 10^3/uL1 (1.0-4.8); LYMPHOCYTES % 9.3 % (24.0-44.0); MEAN CORP HGB 25.8 pg (26-34); MONOCYTES # 0.5 10^3/uL (0.3-0.8); MONOCYTES % 6.3 % (5.0-12.0); NEUTROPHIL # 6.5 10^3/uL (1.8-7.7); PLATELET COUNT 179 10^3/uL (150-400); RED CELL DISTRIBUTION WIDTH 15.7 % (11.5-14.5)
[2021-06-13 05:36] LABS: CARBON DIOXIDE 24.9 mmol/L (20.0-32)
[2021-06-13] MEDS ORDERED: SODIUM CHLORIDE IRR BOTTLE IR ONE (07:17)
[2021-06-13] MEDS ORDERED: LACTATED RINGERS 1,000 ML ONE (07:23)
[2021-06-13] MEDS ORDERED: EPHEDRINE SULFATE ONE (07:23)
[2021-06-13] MEDS ORDERED: ZOFRAN ONE ×2 (07:23→07:24)
[2021-06-13] MEDS ORDERED: TORADOL ONE (07:23)
[2021-06-13] MEDS ORDERED: DILAUDID ONE ×2 (07:23→08:11)
[2021-06-13] MEDS ORDERED: ANCEF ONE (07:24)
[2021-06-13] MEDS ORDERED: DIPRIVAN IV ONE (07:24)
[2021-06-13] MEDS: HUMALOG SQ SCH ×4 (07:39→20:40)
[2021-06-13] MEDS ORDERED: HUMULIN R ONE (08:52)
[2021-06-13] MEDS: CELEBREX PO SCH ×2 (09:00→20:26)
--- NOTE | 2021-06-13 09:21 | OPH ---
DATE OF SURGERY: 06/13/2021 DICTATOR NAME: Isaac Castro MD PREOPERATIVE DIAGNOSIS: Infected left prepatellar bursa. POSTOPERATIVE DIAGNOSIS: Infected left prepatellar bursa. OPERATIVE PROCEDURE: Irrigation and debridement, left prepatellar bursa with wound closure. SURGEON: Isaac Castro MD ANESTHESIA: LMA. TOURNIQUET TIME: 21 minutes at 300 mmHg. DRAINS: One. BLOOD LOSS: 10 mL. DESCRIPTION OF INDICATIONS: The patient is a 65-year-old male who underwent I and D of an infected left prepatellar bursa on 06/11/2021. The patient's cultures grew out Staph aureus with multiple sensitivities. The patient has been on IV vancomycin. He was taken back to the operating room today for repeat I and D with possible wound closure. DESCRIPTION OF PROCEDURE: The patient was placed in the operating table in the supine position. LMA anesthetic was induced without difficulty. The patient had the left lower extremity sterilely prepped and draped. The patient had a well-padded tourniquet placed around the left thigh. The leg was elevated for 60 seconds and then the tourniquet was inflated to 300. The patient had the wound inspected. There was healthy granulation tissue throughout the wound. The patient then had the wound debrided with a Versajet system. The wound was then copiously irrigated with a liter of saline. A drain was placed deep inside the wound and brought out proximally and laterally. The wound was then closed with an interrupted #2 Prolene suture. Compressive dressing was applied and the drain was hooked up to the suction tube. Tourniquet was released and the patient was extubated in the operating room, sent to recovery in stable condition. Isaac Castro MD DR: JAG/STUART TID: [id number] RECEIPT: [id number]
[2021-06-13] MEDS ORDERED: NS 1000ML 1,000 ML ONE (09:33)
[2021-06-13] MEDS: NS 1000ML 1,000 ML IV SCH (11:00)
[2021-06-13] MEDS: VANCOMYCIN HCL 1 GM in NS 250ML 250 ML IV SCH ×2 (14:08→21:13)
--- NOTE | 2021-06-13 14:22 | PRM.PN ---
Subjective Subjective Date: Jun 13, 2021 Time: 07:00 Subjective Patient is scheduled for incision and debridement today and closure of the wound. Wound culture so far growing staph aureus. Patient is on IV vancomycin. Review of Systems Constitutional: Chills, Weakness Musculoskeletal: leg pain Allergies: Coded Allergies: No Known Allergies (Unverified , 06/10/21) Objective Vitals and I/O Vital Sign - Last 24 Hours 06/12/21 06/12/21 06/13/21 06/13/21 16:29 20:00 01:41 04:00 Temp 97.6 98.3 98.4 Pulse 82 79 79 Resp 18 18 20 B/P (MAP) 128/76 (93) 143/87 (105) 154/85 (108) Pulse Ox 96 95 95 O2 Delivery Room Air Room Air Room Air 06/13/21 06/13/21 06/13/21 06/13/21 07:00 07:02 08:42 08:42 Temp 98.7 97.7 Pulse 82 105 Resp 18 15 B/P (MAP) 154/81 (105) 154/86 (108) Pulse Ox 93 96 O2 Delivery Room Air Room Air Non-Rebreather O2 Flow Rate 10 10 06/13/21 06/13/21 06/13/21 06/13/21 08:48 08:53 08:58 09:03 Pulse 103 104 102 104 Resp 15 15 16 16 B/P (MAP) 158/93 (114) 183/88 (119) 176/97 (123) 146/96 (113) Pulse Ox 95 96 100 96 O2 Delivery Non-Rebreather Non-Rebreather Non-Rebreather Room Air O2 Flow Rate 10 10 10 06/13/21 06/13/21 06/13/21 06/13/21 09:08 09:13 09:18 09:23 Temp 97.7 Pulse 105 104 102 104 Resp 16 16 16 16 B/P (MAP) 153/90 (111) 149/86 (107) 161/90 (113) 137/90 (106) Pulse Ox 92 96 96 95 O2 Delivery Room Air Nasal Canula Nasal Canula Nasal Canula O2 Flow Rate 2 2 2 06/13/21 06/13/21 06/13/21 09:28 09:40 11:32 Temp 97.6 98.2 Pulse 104 92 Resp 16 19 B/P (MAP) 165/86 (112) 140/76 (97) Pulse Ox 97 99 O2 Delivery Nasal [place] Room Air O2 Flow Rate 2 2 Intake and Output 06/13/21 07:00 Intake Total 1510 ml Output Total 450 ml Balance 1060 ml General: Alert, Oriented X3 Neck: Supple, No JVD Lungs: Clear to auscultation, Normal air movement Heart: Regular rate, Normal S1 Abdomen: Normal bowel sounds, Soft Extremities: Other (Swollen, Less erythematous) Skin: No significant lesion Neuro: Normal speech, Normal tone Psych/Mental Status: Mental status NL, Mood NL All Results(Lab/Rad) Laboratory Tests Test 06/10/21 10:46 06/10/21 15:45 06/10/21 20:04 06/11/21 04:59 Bedside Glucose 294 231 381 White Blood Count 5.7 10^3/uL Red Blood Count 4.07 10^6/uL Hemoglobin 10.3 g/dL Hematocrit 31.8 % Mean Corpuscular Volume 78.1 fL Mean Corpuscular Hemoglobin 25.3 pg Mean Corpuscular Hemoglobin Concent 32.4 g/dL Red Cell Distribution Width 15.5 % Platelet Count 158 10^3/uL Mean Platelet Volume 9.5 fL Neutrophils (%) (Auto) 75.0 % Lymphocytes (%) (Auto) 12.0 % Monocytes (%) (Auto) 8.3 % Neutrophils # (Auto) 4.2 10^3/uL Lymphocytes # (Auto) 0.68 10^3/uL1 Monocytes # (Auto) 0.5 10^3/uL Absolute Immature Granulocyte (auto 0.20 10^3 u/L Absolute Eosinophils (auto) 0.2 10^3/uL Immature Granulocytes % 3.50 % Eosinophils % 4.2 % Basophils % 0.5 % Basophils # 0.0 10^3/uL Sodium Level 135 mmol/L Potassium Level 4.6 mmol/L Chloride Level 103.0 mmol/L Carbon Dioxide Level 23.3 mmol/L Glucose Level 209 mg/dL Blood Urea Nitrogen 14 mg/dL Creatinine 0.92 mg/dL Calcium Level 8.7 mg/dL Anion Gap 13.3 Estimated GFR () 99.9 Est GFR (CKD-EPI)(Non-Afr [place]ian) 82.6 BUN/Creatinine Ratio 15.0 Test 06/11/21 07:08 Bedside Glucose 214 Current Medications Medications (Trade) Dose Ordered Sig/Kerry Route PRN Reason Start Time Stop Time Status Last Admin Dose Admin Acetaminophen (Tylenol) 650 mg Q4H PRN PO PAIN 1 - 3 06/09/21 23:30 07/09/21 23:29 Morphine Sulfate (Morphine Sulfate) 2 mg Q4H PRN IV PAIN 7 - 10 06/09/21 23:45 07/09/21 23:44 06/10/21 20:47 Insulin Human Lispro (Humalog) 0-140 0 Units 141-200... ACHS SQ 06/10/21 07:30 07/10/21 07:29 06/10/21 21:00 Ondansetron HCl (Zofran) 4 mg Q6H PRN IV n/v 06/09/21 23:30 07/09/21 23:29 Vancomycin HCl 1 gm/Sodium Chloride 250 ml @ 175 mls/hr Q12HR IV 06/09/21 23:30 07/09/21 23:29 06/10/21 22:04 Acetaminophen/ Hydrocodone Bitart ([place] 5mg) 1 ea Q6HR PRN PO PAIN 4 - 6 06/09/21 23:30 07/09/21 23:29 06/10/21 23:18 Enoxaparin Sodium (Lovenox) 40 mg Q24HRS SQ 06/09/21 23:30 06/10/21 17:26 DC 06/10/21 00:44 Vancomycin HCl 1 ml @ ud STK-MED ONCE .ROUTE 06/10/21 00:28 06/10/21 00:28 DC Sodium Chloride 1,000 ml @ 75 mls/hr [id number] IV 06/10/21 03:00 07/10/21 02:59 06/10/21 03:00 Piperacillin Sod/ Tazobactam Sod 3.375 gm/Sodium Chloride 100 ml @ 100 mls/hr Q6H IV 06/10/21 17:30 06/10/21 17:37 DC Piperacillin Sod/ Tazobactam Sod 3.375 gm/Sodium Chloride 100 ml @ 100 mls/hr Q8H IV 06/10/21 19:30 07/10/21 19:29 06/11/21 04:00 Sodium Chloride 100 ml @ ud STK-MED ONCE IV 06/10/21 19:56 06/10/21 19:56 DC Sodium Chloride 500 ml @ ud STK-MED ONCE IV 06/10/21 20:08 06/10/21 20:09 DC Sodium Chloride 100 ml @ ud STK-MED ONCE IV 06/11/21 03:51 06/11/21 03:52 DC Assessment/Plan Assessment/Plan Assessment/Plan Plan Continue current antibiotics, Pain management with close monitoring of vital signs and pulse ox Appreciate orthopedics help and input. Monitor and control blood glucose, sliding scale with insulin coverage Possible discharge in a.m. if patient stable on antibiotics. Problems: (1) Abscess of bursa, left knee Status: Acute ICD Code: M71.062 - Abscess of bursa, left knee SNOMED: 247708546 (2) T2DM (type 2 diabetes mellitus) Status: Chronic ICD Code: E11.9 - Type 2 diabetes mellitus without complications SNOMED: [id number] DIONE CHURCH MD Jun 13, 2021 14:22
[2021-06-14] MEDS: NS 1000ML 1,000 ML IV SCH (02:56)
[2021-06-14] MEDS: ULTRAM PO PRN ×2 (03:01→11:17)
[2021-06-14 03:55] VITALS: BP 139/75
[2021-06-14] MEDS: VANCOMYCIN HCL 1 GM in NS 250ML 250 ML IV SCH (05:20)
[2021-06-14] MEDS: TYLENOL PO SCH (05:20)
[2021-06-14 06:59] LABS: BASOPHIL % 0.3 % (0.0-0.2); EOSINOPHIL # 0.1 10^3/uL (0.0-0.2); EOSINOPHIL % 1.7 % (0.0-5.0); LYMPHOCYTES # 0.81 10^3/uL1 (1.0-4.8); LYMPHOCYTES % 14.2 % (24.0-44.0); MONOCYTES # 0.4 10^3/uL (0.3-0.8); MONOCYTES % 7.7 % (5.0-12.0); NEUTROPHIL # 4.4 10^3/uL (1.8-7.7); NEUTROPHILS % 76.1 % (41.0-85.0); PLATELET COUNT 171 10^3/uL (150-400); RED CELL DISTRIBUTION WIDTH 15.7 % (11.5-14.5)
[2021-06-14 07:06] LABS: CARBON DIOXIDE 24.3 mmol/L (20.0-32)
[2021-06-14] MEDS: HUMALOG SQ SCH ×2 (08:05→12:50)
[2021-06-14 08:28] VITALS: BP 145/78
[2021-06-14] MEDS: CELEBREX PO SCH (09:11)
[2021-06-14] MEDS ORDERED: LEVO750T5 PO (11:24)
[2021-06-14] MEDS ORDERED: CIPR500T86 PO (12:09)
[2021-06-14 12:38] VITALS: BP 134/69
--- NOTE | 2021-06-14 13:23 | PRM.DC ---
Discharge Summary Date of Discharge: Jun 14, 2021 Time of Request to Discharge: 09:00 Hospital Course 65yoM w/ hx of T2DM presented to [facility] w/ worsening left knee pain, redness, warmth and swelling. Stated the pain and redness/warmth/swelling started approx 10 days ago. He was prescribed Bactrim DS but the symptoms got worse, to the point he went to the [facility] ER in [place] for further evaluation. Left knee US and Xray done at that facility (report unavailable at time of admission) and he was told there was an abscess of the bursa of his left knee but no bone involvement. They did an I&D there and sent wound cx to [facility]. He received vancomycin and clindamycin prior to transfer to [facility]. Patient was admitted to hospital for further management. Started IV antibiotics including IV vancomycin. Orthopedics consulted. Patient underwent incision and drainage , Followed by irrigation the next day with wound closure. Wound culture growing staph aureus sensitive. Patient was cleared by orthopedics for discharge. Patient was placed on oral Cipro for 2 weeks. Today patient is feeling much better. Afebrile. Discussed with the patient regarding starting him on insulin for better glucose coverage but patient refused. He said he will follow diet control and continue with his oral hypoglycemic glipizide and Metformin. I advised the patient to close monitor his blood glucose and if it is elevated to contact his primary care physician for management. Patient family at the bedside. Patient will be discharged home. Diet diabetic diet. Activity as per orthopedics instructions. Follow-up with orthopedics few days as per his instructions. Follow-up with PCP in 1 week. Patient was instructed to go to the emergency room if you start having fever or worsening joint pain or swelling., Exam/Vitals Blood pressure 120/70, heart rate 80,Temperature 98.Respiratory 14 General: Alert, Oriented X3 HEENT: Atraumatic, PERRLA Neck: Supple, No JVD Lungs: Clear to auscultation, Normal air movement Heart: Regular rate, Normal S1 Abdomen: Normal bowel sounds, Soft Extremities: Other (Left knee, wounds drain) Skin: No rashes, No significant lesion Neuro: Normal speech, Normal tone Psych/Mental Status: Mental status NL, Mood NL Scheduled Ciprofloxacin Hcl (Cipro), 1 TAB PO BID Levofloxacin (Levaquin), 750 MG PO DAILY Sepsis Evaluation @ Discharge Vital Sign - Last 24 Hours 06/10/21 06/10/21 06/10/21 06/10/21 08:46 11:52 16:08 20:20 Temp 97.9 98.5 98.0 98.4 Pulse 69 83 85 81 Resp 18 18 17 18 B/P (MAP) 127/67 (87) 132/61 (84) 126/68 (87) 121/71 (88) Pulse Ox 97 96 96 94 O2 Delivery Room Air Room Air Room Air 06/11/21 06/11/21 06/11/21 00:00 01:48 04:00 Temp 98.5 97.5 Pulse 68 66 Resp 18 18 B/P (MAP) 123/71 (88) 122/73 (89) Pulse Ox 94 96 O2 Delivery Room Air Room Air Room Air Intake and Output 06/11/21 07:00 Intake Total 1550 ml Output Total 700 ml Balance 850 ml Laboratory Tests Test 06/10/21 10:46 06/10/21 15:45 06/10/21 20:04 06/11/21 04:59 Bedside Glucose 294 231 381 White Blood Count 5.7 10^3/uL Red Blood Count 4.07 10^6/uL Hemoglobin 10.3 g/dL Hematocrit 31.8 % Mean Corpuscular Volume 78.1 fL Mean Corpuscular Hemoglobin 25.3 pg Mean Corpuscular Hemoglobin Concent 32.4 g/dL Red Cell Distribution Width 15.5 % Platelet Count 158 10^3/uL Mean Platelet Volume 9.5 fL Neutrophils (%) (Auto) 75.0 % Lymphocytes (%) (Auto) 12.0 % Monocytes (%) (Auto) 8.3 % Neutrophils # (Auto) 4.2 10^3/uL Lymphocytes # (Auto) 0.68 10^3/uL1 Monocytes # (Auto) 0.5 10^3/uL Absolute Immature Granulocyte (auto 0.20 10^3 u/L Absolute Eosinophils (auto) 0.2 10^3/uL Immature Granulocytes % 3.50 % Eosinophils % 4.2 % Basophils % 0.5 % Basophils # 0.0 10^3/uL Sodium Level 135 mmol/L Potassium Level 4.6 mmol/L Chloride Level 103.0 mmol/L Carbon Dioxide Level 23.3 mmol/L Glucose Level 209 mg/dL Blood Urea Nitrogen 14 mg/dL Creatinine 0.92 mg/dL Calcium Level 8.7 mg/dL Anion Gap 13.3 Estimated GFR () 99.9 Est GFR (CKD-EPI)(Non-Afr Trin[place]adian) 82.6 BUN/Creatinine Ratio 15.0 Test 06/11/21 07:08 Bedside Glucose 214 Current Medications Medications (Trade) Dose Ordered Sig/Kerry PRN Reason Start Time Stop Time Status Last Admin Acetaminophen (Tylenol) 650 mg Q4H PRN PAIN 1 - 3 06/09/21 23:30 07/09/21 23:29 Acetaminophen/ Hydrocodone Bitart ([place] 5mg) 1 ea Q6HR PRN PAIN 4 - 6 06/09/21 23:30 07/09/21 23:29 06/10/21 23:18 Insulin Human Lispro (Humalog) 0-140 0 Units 141-200... ACHS 06/10/21 07:30 07/10/21 07:29 06/10/21 21:00 Morphine Sulfate (Morphine Sulfate) 2 mg Q4H PRN PAIN 7 - 10 06/09/21 23:45 07/09/21 23:44 06/10/21 20:47 Ondansetron HCl (Zofran) 4 mg Q6H PRN n/v 06/09/21 23:30 07/09/21 23:29 Piperacillin Sod/ Tazobactam Sod 3.375 gm/Sodium Chloride 100 ml @ 100 mls/hr Q8H 06/10/21 19:30 07/10/21 19:29 06/11/21 04:00 Sodium Chloride 1,000 ml @ 75 mls/hr [id number] 06/10/21 03:00 07/10/21 02:59 06/10/21 03:00 Vancomycin HCl 1 gm/Sodium Chloride 250 ml @ 175 mls/hr Q12HR 06/09/21 23:30 07/09/21 23:29 06/10/21 22:04 Plan Problems: (1) Abscess of bursa, left knee Status: Acute ICD Code: M71.062 - Abscess of bursa, left knee SNOMED: 677214183 (2) T2DM (type 2 diabetes mellitus) Status: Chronic ICD Code: E11.9 - Type 2 diabetes mellitus without complications SNOMED: 95310174 Plan 65yoM w/ hx of T2DM presented to [facility] ER w/ worsening left knee pain, redness, warmth and swelling. Stated the pain and redness/warmth/swelling started approx 10 days ago. He was prescribed Bactrim DS but the symptoms got worse, to the point he went to the [facility] ER in [place] for further evaluation. Left knee US and Xray done at that facility (report unavailable at time of admission) and he was told there was an abscess of the bursa of his left knee but no bone involvement. They did an I&D there and sent wound cx to [facility]. He received vancomycin and clindamycin prior to transfer to [facility]. Patient was admitted to hospital for further management. Started IV antibiotics including IV vancomycin. Orthopedics consulted. Patient underwent incision and drainage , Followed by irrigation the next day with wound closure. Wound culture growing staph aureus sensitive. Patient was cleared by orthopedics for discharge. Patient was placed on oral Cipro for 2 weeks. Today patient is feeling much better. Afebrile. Discussed with the patient regarding starting him on insulin for better glucose coverage but patient refused. He said he will follow diet control and continue with his oral hypoglycemic glipizide and Metformin. I advised the patient to close monitor his blood glucose and if it is elevated to contact his primary care physician for management. Patient family at the bedside. Patient will be discharged home. Diet diabetic diet. Activity as per orthopedics instructions. Follow-up with orthopedics few days as per his instructions. Follow-up with PCP in 1 week. Patient was instructed to go to the emergency room if you start having fever or worsening joint pain or swelling., DIONE CHURCH MD Jun 14, 2021 13:23
[2021-06-14 13:32] VITALS: BP 134/69
--- NOTE | 2021-06-14 15:10 | NUR ---
DISCHARGE PT DISCHARGED AT THIS TIME IN STABLE CONDITION. PT'S IV DISCONTINUED. PT TOLERATED WELL. CATHETER IN TACT. PT AND PROVIDED EDUCATION ON NEW ANTIBIOTIC THERAPY. EDUCATED REGARDING F/U APPTS TO BE MADE WITH BOTH ORTHO AND PCP. EDUCATED PT AND ON MANAGEMENT OF [place] DRAIN AT HOME UNTIL F/U APPT WITH [facility]. VITALS AND LABS REVIEWED. PT TO F/U WITH PCP REGARDING ORAL ANTIDIABETIC AGENTS. PT TAKEN TO PRIVATE AUTO VIA WHEELCHAIR. THIS NURSE RELINQUISHES CARE OF PT AT THIS TIME.
== END 2021-06-14 15:10 | disposition home or self-care (01) | DRG 502 ==
LOC: MS 22:36 → UNDOADMIN 22:36 → MS 22:45
PROVIDERS: ADMIT Surgery; ATTEND Surgery
PROC: 0MDP0ZZ Extraction of Left Knee Bursa and Ligament, Open Approach (ICD-10-PCS; principal; 2021-06-11 11:29)
PROC: 0JQP0ZZ Repair Left Lower Leg Subcutaneous Tissue and Fascia, Open Approach (ICD-10-PCS; 2021-06-13)
DX: M71.062 Abscess of bursa, left knee (principal); E11.9 Type 2 diabetes mellitus without complications
CPT/HCPCS: 36415; 80048; 80202; 82948; 85025; 87070; 87075; 87077; 87186; A4217; G0378; J0690; J1170; J1650; J1815; J1885; J2001; J2405; J2543; J3370; J3490; J7030; J7040; J7050; J7120; J8499